=== PATIENT | male | born 1950 | race Caucasian/White ===

== ENCOUNTER 2016-10-22 08:33 | Inpatient (IN) | payer BC, OTHER ==
[2016-10-04 11:46] VITALS: BMI 31.0
--- NOTE | 2016-10-04 12:26 | PAT Medication Instructions ---
Service Date October 04, 2016. Current Home Medication List Amlodipine (Norvasc), 5 MG PO QPM Aspirin (Aspirin Ec), 81 MG PO QAM Atenolol (Tenormin), 25 MG PO QAM Citalopram (Celexa *), 20 MG PO QAM Clopidogrel (Plavix), 75 MG PO QAM Coenzyme Q10 (Ubidecarenone) (Coq10), 100 MG PO QAM Hydrocodone/Acetaminophen 5MG/325MG ([place] 5MG/325MG), 1 TABLET PO BID PRN for Pain Isosorbide Mononitrate (Isosorbide Mononitrate ER), 30 MG PO QAM Multivitamins/Minerals (Mvi With Minerals), 1 TAB PO QAM Nitroglycerin (Nitrostat), 0.4 MG UT PRN Pantoprazole (Protonix), 40 MG PO QAM Rosuvastatin Calcium (Crestor), 20 MG PO QPM Triamterene & Hydrochlorothiaz (Hctz/Triamterene), 0.5 TAB PO Q2D Zolpidem Tartrate (Zolpidem Tartrate), 1 TAB PO HS [Potassium], 99 MG PO QAM Medication Instructions For Your Scheduled Surgery - Check with surgeon/truer pinion and wheel for instructions: Aspirin (Aspirin Ec), 81 MG PO QAM Clopidogrel (Plavix), 75 MG PO QAM - Hold the following medications 2 weeks prior to surgery: Coenzyme Q10 (Ubidecarenone) (Coq10), 100 MG PO QAM - Hold the following medications the morning of surgery: [Potassium], 99 MG PO QAM Triamterene & Hydrochlorothiaz (Hctz/Triamterene), 0.5 TAB PO Q2D Multivitamins/Minerals (Mvi With Minerals), 1 TAB PO QAM - Take the following medications the morning of surgery with a sip of water: Nitroglycerin (Nitrostat), 0.4 MG UT PRN (if needed) Pantoprazole (Protonix), 40 MG PO QAM Isosorbide Mononitrate (Isosorbide Mononitrate ER), 30 MG PO QAM Citalopram (Celexa *), 20 MG PO QAM Atenolol (Tenormin), 25 MG PO QAM Hydrocodone/Acetaminophen 5MG/325MG ([place] 5MG/325MG), 1 TABLET PO BID PRN for Pain (okay to take up to 4 hours prior to surgery if needed) - Take the following medications as scheduled the night before surgery: Zolpidem Tartrate (Zolpidem Tartrate), 1 TAB PO HS Rosuvastatin Calcium (Crestor), 20 MG PO QPM Nitroglycerin (Nitrostat), 0.4 MG UT PRN (if needed) Amlodipine (Norvasc), 5 MG PO QPM Hydrocodone/Acetaminophen 5MG/325MG ([place] 5MG/325MG), 1 TABLET PO BID PRN for Pain (if needed) If you have any questions please call us at [phone] (Kylah Garcia PA-C) or [phone] or [phone]
[2016-10-04 12:49] LABS: BASO % 0.3 %; BASO ABS # 0.03 K/uL (0-0.2); COMPLETE YES; EOS % 1.5 %; HEMATOCRIT 41.3 % (42-52); IG% 0.5 %; LYMPH % 13.1 %; LYMPH ABS # 1.16 K/uL (1.2-3.4); MEAN CELL VOLUME 91.2 fL (80-100); MEAN CORPUSCULAR HEMOGLOBIN 31.1 pg (25-34); MEAN CORPUSCULAR HGB CONC 34.1 g/dl (32-36); MEAN PLATELET VOLUME 9.1 fL (7.4-10.4); MONO % 13.1 %; NEUT % 71.5 %; PLATELET COUNT 261 K/uL (130-400); RED BLOOD COUNT 4.53 M/uL (4.7-6.1); WHITE BLOOD COUNT 8.88 K/uL (4.8-10.8)
--- NOTE | 2016-10-04 12:55 | DIAGNOSTIC IMAGING REPORT ---
TWO VIEW CHEST CLINICAL HISTORY: Preoperative examination. FINDINGS: PA and lateral chest radiographs are compared to study dated 10/28/2008. The heart is enlarged and there is atherosclerotic calcification of the thoracic aorta. The pulmonary vasculature is noncongested. Chronic interstitial thickening is again noted. Minimal atelectasis is identified at the left lung base. No airspace consolidation or pleural effusion is seen. There is no pneumothorax. The skeletal structures appear osteopenic. The bony thorax appears intact. IMPRESSION: Mild cardiac enlargement with no active disease in the chest. Electronically signed by: Meet Mishra M.D. 10/04/2016 12:54 PM Dictated Date/Time: 10/04/2016 12:53 PM
[2016-10-04 13:03] LABS: URINE APPEARANCE CLEAR (CLEAR); URINE BILIRUBIN NEG (NEG); URINE COLOR DK YELLOW; URINE NITRITE NEG (NEG); URINE PH 7.5 (4.5-7.5); URINE SPECIFIC GRAVITY 1.019 (1.000-1.030); UROBILINOGEN NEG (NEG)
[2016-10-04 13:12] LABS: MANUAL MICROSCOPIC REQUIRED? NO; REVIEW REQ? NO
[2016-10-04 14:42] LABS: CALCIUM 9.1 mg/dl (8.5-10.1); CREATININE 0.9 mg/dl (0.60-1.40)
[~2016-10-22] VITALS: Ht 177.8 cm; Wt 97.7 kg
[2016-10-22] VITALS (9 sets, daily range): BP systolic 118–151; BP diastolic 73–105; PULSE 85–109; TEMP 36.5–37.2; O2SAT 90–97; Ht 177.8 cm; Wt 97.7 kg
--- NOTE | 2016-10-22 07:25 | History & Physical Bridge Note ---
H&P Re-Evaluation Bridge Note: I have examined the patient, reviewed the History & Physical and in the interval since the performance of the History & Physical I have noted the following changes of clinical significance: No changes noted
[~2016-10-22 08:33] MED LIST: AMLO-110 PO; ASPI81TA28 PO; ATEN-173 PO; CEFAZOLIN 2000 MG/60 ML D5W IV SCH; CLOP1TAB15 PO; CLX20 PO; COEN100C7 PO; HYDR-5688 PO; ISOS-11 PO; LACTATED RINGER'S 1000ML 1,000 ML IV SCH; MULT-513 PO; NTRGSL/4 UT; PANT40TA PO; POTASSIUM PO; ROSU20TA PO; TRIA75TA PO; ZOLP10TA6 PO
--- NOTE | 2016-10-22 10:00 | History and Physical ---
History & Physical Date October 22, 2016. Chief Complaint back and leg pain History of Present Illness The patient is a 66 year old male with complaints of Additional History Hepatic Disease: No Endocrine Disorder: No Kidney Disease: No Hypertension: No Heart Disease: No Bleeding Tendencies: No Infectious Diseases: No Allergies Coded Allergies: No Known Allergies (Verified , 10/22/16) Home Medications Scheduled Amlodipine (Norvasc), 5 MG PO QPM Aspirin (Aspirin Ec), 81 MG PO QAM Atenolol (Tenormin), 25 MG PO QAM Citalopram (Celexa *), 20 MG PO QAM Clopidogrel (Plavix), 75 MG PO QAM Coenzyme Q10 (Ubidecarenone) (Coq10), 100 MG PO QAM Isosorbide Mononitrate (Isosorbide Mononitrate ER), 30 MG PO QAM Multivitamins/Minerals (Mvi With Minerals), 1 TAB PO QAM Nitroglycerin (Nitrostat), 0.4 MG UT PRN Pantoprazole (Protonix), 40 MG PO QAM Rosuvastatin Calcium (Crestor), 20 MG PO QPM Triamterene & Hydrochlorothiaz (Hctz/Triamterene), 0.5 TAB PO Q2D Zolpidem Tartrate (Zolpidem Tartrate), 1 TAB PO HS [Potassium], 99 MG PO QAM Scheduled PRN Hydrocodone/Acetaminophen 5MG/325MG ([place] 5MG/325MG), 1 TABLET PO BID PRN for Pain Physical Examination Skin: warm/dry, no rash Eyes: normal inspection, EOMI, sclerae normal ENT: normal ENT inspection, pharynx normal Head: normocephalic, atraumatic Neck: supple, no adenopathy, trachea midline Respiratory/Chest: lungs clear, normal breath sounds, no respiratory distress Cardiovascular: regular rate, rhythm, no edema, no murmur Abdomen / GI: normal bowel sounds, non tender Back: normal inspection Extremities: normal inspection, normal range of motion Neurologic/Psych: no motor/sensory deficits, alert, normal reflexes, oriented x 3 Diagnosis lumbar stenosis Plan of Treatment removal inst L3-S1 decompression fusion L2-3 with iliac bolts
[2016-10-22] MEDS ORDERED: MIDAZOLAM HCL 1 MG/ML 2ML VIAL ONE (10:07)
[2016-10-22] MEDS ORDERED: FENTANYL CITRATE INJ 50 MCG/1 ML 2 ML VIAL ONE ×6 (10:08→13:56)
[2016-10-22] MEDS ORDERED: BUPIVACAINE/EPINEPHRINE 0.5% MPF 1:200,000 30 ML VIAL ONE (10:41)
[2016-10-22] MEDS ORDERED: SODIUM CHLORIDE 0.9% PF 50 ML VIAL ONE (10:42)
[2016-10-22] MEDS ORDERED: BACITRACIN 50000 UNIT VIAL ONE (10:42)
[2016-10-22] MEDS ORDERED: HYDROmorphone INJ 2 MG/ML SYR/VIAL IV PRN (10:45)
[2016-10-22] MEDS ORDERED: EpHEDrine SULFATE INJ 50 MG/ML AMP IV PRN ×2 (10:45→15:45)
[2016-10-22] MEDS ORDERED: ONDANSETRON INJ 2 MG/ML 2 ML VIAL IV PRN ×2 (10:45→15:45)
[2016-10-22] MEDS ORDERED: ATROPINE SULFATE 0.1 MG/ML 5ML SYR IV PRN ×2 (10:45→15:45)
[2016-10-22] MEDS ORDERED: PHENYLEPHRINE 100MCG/ML 5ML SYR IV PRN ×2 (10:45→15:45)
[2016-10-22] MEDS ORDERED: HYDROmorphone INJ 2 MG/ML SYR/VIAL ONE ×3 (11:11→13:59)
[2016-10-22] MEDS ORDERED: ALBUMIN HUMAN 5% 12.5 GM/250 ML VIAL IV ONE (12:24)
[2016-10-22 13:23] LABS: HEMATOCRIT 32.1 % (42-52)
[2016-10-22] MEDS ORDERED: LABETALOL HCL IV 5 MG/ML 20ML IV ONE (13:28)
[2016-10-22] MEDS ORDERED: DEXAMETHASONE SOD INJ 4 MG/ML VIAL ONE (13:28)
[2016-10-22] MEDS ORDERED: ROCURONIUM BROMIDE 10 MG/ML 5 ML VIAL ONE ×2 (13:28→13:29)
[2016-10-22] MEDS ORDERED: PROPOFOL IV EMULSION 10 MG/ML 20 ML VIAL IV ONE (13:28)
[2016-10-22] MEDS ORDERED: PHENYLEPHRINE 100MCG/ML 5ML SYR ONE (13:28)
[2016-10-22] MEDS ORDERED: EpHEDrine SULFATE 50MG/5ML SYR ONE (13:28)
[2016-10-22] MEDS ORDERED: LIDOCAINE HCL 2% 2 ML VIAL (20MG/ML) ONE (13:28)
[2016-10-22] MEDS ORDERED: METOPROLOL TARTRATE 1 MG/ML VIAL ONE (13:28)
[2016-10-22] MEDS ORDERED: SODIUM CHLORIDE 0.9% 1000ML 1,000 ML IV SCH (13:55)
--- NOTE | 2016-10-22 13:55 | [facility] Post Operative Brief Note ---
Immediate Operative Summary Operative Date October 22, 2016. Pre-Operative Diagnosis Lumbar stenosis Post-Operative Diagnosis Lumbar stenosis Procedure(s) Performed L2-L4 Lumbar Laminectomy, Decompression; Pedicle Screw Fixation; Placement of Interbody Device; L2-L4 Posterolateral Fusion; Application of Inna Allograft ; Bone Morphogenetic Protein; Bilateral Iliac [place] Fixation; Bilateral Sacroiliac Joint Fusion; L3-L5 Hardware Removal Surgeon Dr. Huang Tube Building Machine Operator Surgeon(s) Giulia Barnett PA-C Estimated Blood Loss 1100 Findings stenosis Specimens A. Explanted hardware
[2016-10-22] MEDS ORDERED: FLOSEAL HEMOSTATIC MATRIX 10ML TOP ONE (13:56)
[2016-10-22] MEDS ORDERED: NALOXONE HCL 0.4 MG/1 ML VIAL/CARP IV PRN ×2 (14:00)
[2016-10-22] MEDS ORDERED: GLYCOPYRROLATE INJ 0.2 MG/ML VIAL ONE (14:00)
[2016-10-22] MEDS ORDERED: LORAZEPAM 0.5 MG TAB PO PRN (14:00)
[2016-10-22] MEDS ORDERED: DO NOT ADMINISTER FLU VACCINE PRN ×3 (14:00)
[2016-10-22] MEDS ORDERED: FAMOTIDINE 20 MG TAB PO PRN (14:00)
[2016-10-22] MEDS ORDERED: BISACODYL 10 MG SUPP PR PRN (14:00)
[2016-10-22] MEDS ORDERED: PROMETHAZINE HCL INJ 12.5 MG in SODIUM CHLORIDE 0.9% 50ML 50 ML IV PRN (14:00)
[2016-10-22] MEDS ORDERED: hydrOXYzine HCL 25 MG TAB PO PRN (14:00)
[2016-10-22] MEDS ORDERED: SOD PHOSPHATE/SOD BIPHOSPHATE ENEMA 132 ML BTL PR PRN (14:00)
[2016-10-22] MEDS ORDERED: LORAZEPAM INJ 0.5 MG in SYRINGE 0.75 ML IV PRN (14:00)
[2016-10-22] MEDS ORDERED: DO NOT ADMINISTER PNEUMOCOCCAL VACCINE PRN ×2 (14:00)
[2016-10-22] MEDS ORDERED: METOCLOPRAMIDE HCL INJ 5 MG/ML 2 ML VIAL IV PRN (14:00)
[2016-10-22] MEDS ORDERED: NITROGLYCERIN 0.4 MG SL PER TAB CHARGE UT PRN (14:00)
[2016-10-22] MEDS ORDERED: ALUMINUM/MAGNESIUM SUSP 30 ML UDC PO PRN (14:00)
[2016-10-22] MEDS ORDERED: ACETAMINOPHEN 500 MG TAB PO PRN (14:00)
[2016-10-22] MEDS ORDERED: ACETAMINOPHEN IV 100 ML IV PRN (14:00)
[2016-10-22] MEDS ORDERED: ONDANSETRON INJ 2 MG/ML 2 ML VIAL ONE (14:00)
[2016-10-22] MEDS ORDERED: MAGNESIUM HYDROXIDE SUSP 30 ML UDC PO PRN (14:00)
[2016-10-22] MEDS ORDERED: NEOSTIGMINE METHYLSULFATE 1 MG/ML 10ML VIAL ONE (14:00)
--- NOTE | 2016-10-22 14:08 | DIAGNOSTIC IMAGING REPORT ---
LUMBAR SPINE 2 OR 3 VIEW CLINICAL HISTORY: Postoperative evaluation. COMPARISON STUDY: Intraoperative lumbar spine fluoroscopic images November 08, 2008. Fluoroscopy time: 20 seconds. FINDINGS: Exact localization is difficult on this exam. These images demonstrate multilevel discectomy with interbody spacer placement. There are multilevel bilateral pedicle screws as well as iliac bolts. 5 fluoroscopic images were obtained. IMPRESSION: Postoperative findings, as described above. Electronically signed by: Bentley Stover M.D. 10/22/2016 2:06 PM Dictated Date/Time: 10/22/2016 2:04 PM
[2016-10-22] MEDS: HYDROmorphone HCL 0.5MG/ML 50 ML CASSETTE IV PRN ×3 (14:25→23:09)
--- NOTE | 2016-10-22 15:43 | Anesthesiology Progress Note ---
Anesthesia Post Op Note Date & Time October 22, 2016 at 15:43 Vital Signs Pain Intensity: 4 Vital Signs Past 12 Hours Date Time Temp Pulse Resp B/P Pulse Ox O2 Delivery O2 Flow Rate FiO2 10/22/16 15:15 36.1 17 134/86 96 Nasal Cannula 2 10/22/16 15:05 36.1 87 17 134/85 96 Nasal Cannula 2 10/22/16 14:55 80 12 133/83 96 Nasal Cannula 2 10/22/16 14:45 78 14 132/80 96 Nasal Cannula 2 10/22/16 14:35 76 14 135/85 99 Mask 10 10/22/16 14:25 85 13 147/89 99 Mask 10 10/22/16 14:19 36.6 93 14 147/97 96 Mask 10 10/22/16 09:20 36.6 88 20 151/105 96 Room Air Notes Mental Status: alert / awake / arousable, participated in evaluation Pt Amnestic to Procedure: Yes Nausea / Vomiting: adequately controlled Pain: adequately controlled Airway Patency, RR, SpO2: stable & adequate BP & HR: stable & adequate Hydration State: stable & adequate Anesthetic Complications: no major complications apparent
[2016-10-22] MEDS ORDERED: HYDROmorphone INJ 1 MG/ML SYR IV PRN (15:45)
[2016-10-22] MEDS: LACTATED RINGER'S 1000ML 1,000 ML IV SCH ×2 (16:18→21:39)
[2016-10-22] MEDS ORDERED: NURSING DECISION MEDICATION ORDER SCH (16:45)
[2016-10-22] MEDS ORDERED: COUGH DROP (SUGAR FREE) LOZ 24 LOZ/1 BOX PO PRN (17:00)
[2016-10-22] MEDS: CEFAZOLIN IV 2,000 MG in DEXTROSE 5% 50ML 50 ML IV SCH (17:42)
[2016-10-22] MEDS: DEXAMETHASONE INJ 6 MG in SYRINGE 0 ML IV SCH (21:30)
[2016-10-22] MEDS: ZOLPIDEM TARTRATE 10 MG TAB PO SCH (21:30)
[2016-10-22] MEDS: AMLODIPINE BESYLATE 5 MG TAB PO SCH (21:31)
[2016-10-22] MEDS: DOCUSATE SODIUM/SENNA 50/8.6MG TAB PO SCH (21:31)
[2016-10-22] MEDS: ROSUVASTATIN CALCIUM 20 MG TAB PO SCH (21:31)
--- NOTE | 2016-10-23 00:35 | OPERATIVE REPORT ---
DATE OF OPERATION: 10/22/2016 PREOPERATIVE DIAGNOSES: Spinal stenosis, bilateral sacroiliitis. POSTOPERATIVE DIAGNOSES: Same. PROCEDURES PERFORMED: 1. Removal of posterior segmental instrumentation, L3-S1. 2. Exploration of fusion of L3-S1. 3. Lumbar decompression, medial facetectomies, foraminotomies L2-L3, L3-L4. 4. Posterior spinal fusion L2-S1. 5. Bilateral SI joint fusion. 6. Placement of posterior segmental instrumentation using Medicrea rods and screws as well as bilateral iliac bolts. 7. Interbody fusion L3-L4. 8. Placement of PEEK cage 15 x 26 mm at L3-L4. 9. Placement of locally harvested morcellized autograft in posterior gutters. 10. Placement of Infuse collagen sponge combined with Mastergraft in the posterior gutters and Inna bone graft in the interbody space. SURGEON: Dr. Richard Huang. KISS MIXER: Giulia Barnett PA-C. Due to the complex nature of the procedure, the entire surgery was performed with the portfolio assistant of NAVIN Norwood. The certified nursing assistant, under direct supervision, was involved in the actual performance of all aspects of the surgical procedure including hemostasis, tissue retraction and incision, instrument management, patient positioning, and wound closure. ANESTHESIA: General. DISPOSITION: The patient awakened and taken to PACU in stable condition. HISTORY OF PATIENT'S PROBLEMS: This is a 66-year-old male well known to me that presents with above-mentioned diagnosis, and after failing extensive course of nonoperative care, elected to undergo the above-mentioned procedure. Risks, benefits, pros, cons, and alternatives were outlined in detail preoperatively. DESCRIPTION OF PROCEDURE: The patient was met with preoperatively, the case discussed and all questions were addressed. At that point the patient was taken back to operative suite and after undergoing successful general intubation by the department of anesthesia was placed in prone position on Ramy table atop Denis frame. All bony prominences were well padded and the eyes were inspected to ensure there was no external pressure placed upon them. At this point, lumbar spine was prepped and draped in normal sterile fashion. Sharp dissection with the assistance of Bovie cautery performed down to and exposing the lamina and transverse processes of L2 and instrumentation at L3, L4, L5 and S1 levels bilaterally. I then proceeded to the hardware bilaterally, noting instability at the L3-L4 level, marked bony overgrowth, definite nonunion. Then we performed a complete revision decompression of L3, partial laminectomy of L2 and instrumentation then placed in L2, L4, L5 and S1 levels bilaterally. We did omit the L3 screws as they were markedly loose secondary to the motion at this level. Bilateral iliac bolts also placed. Through a transforaminal approach on the right, a complete discectomy of L3-L4 was performed, endplates curetted to subcortical bleeding bone and a 15 x 26 mm PEEK cage filled with Inna bone grafting tapped into position. Appropriate size rods were then placed, locked into position. The transverse processes of L2, L3, L4, L5 and sacral ala burred to subcortical bleeding bone as well as burring out the bilateral SI joints. Infuse collagen sponge combined with Mastergraft and locally harvested morselized autograft was placed in the bilateral SI joints posterior gutters bilaterally. A crosslink locked into position, 7 flat GENEVA drain inserted. Incision was closed with 1-0 Vicryl in the fascia, 2-0 Vicryl subcutaneously, 4-0 Monocryl for final skin closure. Steri-Strips and sterile dressing placed. The patient was awakened and taken to PACU in stable condition. I attest to the content of the Intraoperative Record and any orders documented therein. Any exceptio ns are noted below.
[2016-10-23] MEDS: CEFAZOLIN IV 2,000 MG in DEXTROSE 5% 50ML 50 ML IV SCH (02:12)
[2016-10-23 03:05] VITALS: BP 127/82; PULSE 106; TEMP 37.1; O2SAT 94
[2016-10-23] MEDS: LACTATED RINGER'S 1000ML 1,000 ML IV SCH (04:42)
[2016-10-23] MEDS: DEXAMETHASONE INJ 6 MG in SYRINGE 0 ML IV SCH ×2 (05:42→13:19)
[2016-10-23] MEDS ORDERED: DC PCA ONE (06:00)
[2016-10-23] MEDS ORDERED: HYDROmorphone INJ 1 MG/ML SYR IV PRN (06:00)
[2016-10-23 06:16] LABS: COMPLETE YES; HEMATOCRIT 29.7 % (42-52); IG% 0.3 %; LYMPH % 4.7 %; MEAN CELL VOLUME 91.1 fL (80-100); MEAN CORPUSCULAR HEMOGLOBIN 30.7 pg (25-34); MEAN CORPUSCULAR HGB CONC 33.7 g/dl (32-36); MEAN PLATELET VOLUME 9.1 fL (7.4-10.4); MONO % 9.3 %; NEUT % 85.7 %; PLATELET COUNT 207 K/uL (130-400); RED BLOOD COUNT 3.26 M/uL (4.7-6.1); WHITE BLOOD COUNT 10.72 K/uL (4.8-10.8)
[2016-10-23] MEDS ORDERED: NURSING VERBAL MED ORDER ONE (06:30)
[2016-10-23 06:53] LABS: BUN/CREATININE RATIO 10.5 (10-20); CALCIUM 8.1 mg/dl (8.5-10.1); CREATININE 0.89 mg/dl (0.60-1.40); POTASSIUM 4.1 mmol/L (3.5-5.1)
[2016-10-23 07:53] VITALS: BP 120/90; PULSE 82; TEMP 36.2; O2SAT 98
--- NOTE | 2016-10-23 08:04 | PROGRESS NOTE ---
DATE: 10/23/2016 Postop day 1 lumbar decompression and fusion. He has no complaints this morning. He is doing well. Back pain controlled. No radicular leg pain. GENEVA drain output last shift is 170 mL. H\T\H this morning are 10.0 and 29.7 respectively. No other complaints. PHYSICAL EXAMINATION: GENERAL: He is in no obvious distress. Afebrile. VITAL SIGNS: Stable. LOWER EXTREMITIES: Neurovascularly intact. Calves are soft and nontender bilaterally. Lumbar dressing is clean, dry and intact. ASSESSMENT: Postop day 1 lumbar decompression and fusion. PLAN: Will start physical therapy today. Discontinue GEODETIC COMPUTATOR. DVT prophylaxis in the form of TEDs and SCDs. Continue with pain control.
[2016-10-23 08:10] VITALS: O2SAT 98
--- NOTE | 2016-10-23 08:10 | Anesthesiology Progress Note ---
Anesthesia Post Op Note Date & Time October 23, 2016 at 08:10 Vital Signs Vital Signs Past 12 Hours Date Time Temp Pulse Resp B/P Pulse Ox O2 Delivery O2 Flow Rate FiO2 10/23/16 07:59 Room Air 10/23/16 07:53 36.2 82 13 120/90 98 Room Air 10/23/16 03:05 37.1 106 16 127/82 94 Nasal Cannula 2.0 10/22/16 23:45 Nasal Cannula 2.0 10/22/16 23:04 94 Nasal Cannula 2.0 10/22/16 23:00 37.2 109 16 118/74 90 Room Air 10/22/16 21:29 108 131/73 10/22/16 20:25 36.9 107 18 147/90 94 Room Air Notes Mental Status: alert / awake / arousable, participated in evaluation Pt Amnestic to Procedure: Yes Nausea / Vomiting: adequately controlled Pain: adequately controlled Airway Patency, RR, SpO2: stable & adequate BP & HR: stable & adequate Hydration State: stable & adequate Anesthetic Complications: no major complications apparent
[2016-10-23] MEDS: CITALOPRAM 20 MG TAB PO SCH (08:40)
[2016-10-23] MEDS: ASPIRIN 81 MG ECTAB PO SCH (08:40)
[2016-10-23] MEDS: ISOSORBIDE MONONITRATE 30 MG TABCR PO SCH (08:40)
[2016-10-23] MEDS: PANTOprazole SOD 40 MG TAB PO SCH (08:41)
[2016-10-23] MEDS: TRIAMTERENE/HCTZ 37.5/25MG TAB PO SCH (08:41)
[2016-10-23] MEDS: OXYCODONE HCL IR 5 MG TAB (IMMEDIATE RELEASE) PO PRN ×4 (08:42→22:04)
--- NOTE | 2016-10-23 08:54 | Clinical Documentation Query ---
ZE Rubio : CLINICAL DOCUMENTATION QUERIES QUERY 1 OF 2 Patient is a 66 year old male who on 10/22 underwent the following procedures: L2-L4 Lumbar Laminectomy, Decompression; Pedicle Screw Fixation; Placement of Interbody Device; L2-L4 Posterolateral Fusion; Application of Inna Allograft; Bone Morphogenetic Protein; Bilateral Iliac [place] Fixation; Bilateral Sacroiliac Joint Fusion; L3-L5 Hardware Removal. EBL for the procedure was 1,100 ml's with subsequently documented losses to date totaling an additional 470 ml's. Preoperative H&H was 14.1 g/dl adn 41.3%. POD #1, repeat values are 10.0 g/dl and 29.7%. Additionally, net I/O is positive for 1,219 ml's at this time. He is being monitored with serial hematology and I/O including drain outputs. In your clinical opinion is this patient being managed for: ( ) Acute blood loss and hemodilutional anemia ( ) Other explanation of clinical findings (Please Explain) ( ) Unable to determine (Please Define) ( ) Need to Discuss ( ) Not Agree The medical record reflects the following clinical findings, treatment, and risk factors. Clinical Indicators: As above Treatment:He is being monitored with serial hematology and I/O including drain outputs. Risk Factors: Perioperative acute blood losses QUERY 2 OF 2 H&P notes no additional PMH. Medication reconciliation and historical EMR suggest treatment for the following disease processes. As appropriate, consider addition of the following diagnoses to you progress notes and discharge summary. In your clinical opinion is this patient being managed for: ( ) CAD, HTN, depression, hyperlipidemia, GERD ( ) Other explanation of clinical findings (Please Explain) ( ) Unable to determine (Please Define) ( ) Need to Discuss ( ) Not Agree The medical record reflects the following clinical findings, treatment, and risk factors. Clinical Indicators: As above Treatment:Amlodipine (Norvasc), 5 MG PO QPM Aspirin (Aspirin Ec), 81 MG PO QAM Atenolol (Tenormin), 25 MG PO QAM Citalopram (Celexa *), 20 MG PO QAM Clopidogrel (Plavix), 75 MG PO QAM Coenzyme Q10 (Ubidecarenone) (Coq10), 100 MG PO QAM Isosorbide Mononitrate (Isosorbide Mononitrate ER), 30 MG PO QAM Multivitamins/Minerals (Mvi With Minerals), 1 TAB PO QAM Nitroglycerin (Nitrostat), 0.4 MG UT PRN Pantoprazole (Protonix), 40 MG PO QAM Rosuvastatin Calcium (Crestor), 20 MG PO QPM Triamterene & Hydrochlorothiaz (Hctz/Triamterene), 0.5 TAB PO Q2D Zolpidem Tartrate (Zolpidem Tartrate), 1 TAB PO HS [Potassium], 99 MG PO QAM Please clarify and document your clinical opinion in the progress notes and discharge summary. Terms such as "probable", "suspected", "likely", "questionable", "possible", or "still to be ruled out" are acceptable. IF IN AGREEMENT, YOU MUST DOCUMENT ABOVE DIAGNOSTIC STATEMENT IN DAILY PROGRESS NOTES AND DISCHARGE SUMMARY. This document is not part of the patient's record. Thank You, Rocael Stanford, RN [phone]
[2016-10-23] MEDS ORDERED: POTASSIUM 99 MG PO SCH (09:00)
[2016-10-23] MEDS ORDERED: TRIAMTERENE/HCTZ 37.5/25MG CAP PO SCH (09:00)
[2016-10-23 12:22] VITALS: BP 118/76; PULSE 78; TEMP 36.3; O2SAT 98
[2016-10-23 16:24] VITALS: BP 129/78; PULSE 82; TEMP 36.9; O2SAT 97
[2016-10-23] MEDS: ZOLPIDEM TARTRATE 10 MG TAB PO SCH (22:04)
[2016-10-23] MEDS: AMLODIPINE BESYLATE 5 MG TAB PO SCH (22:04)
[2016-10-23] MEDS: ROSUVASTATIN CALCIUM 20 MG TAB PO SCH (22:05)
[2016-10-23] MEDS: DOCUSATE SODIUM/SENNA 50/8.6MG TAB PO SCH (22:05)
[2016-10-23 23:35] VITALS: BP 149/85; PULSE 87; TEMP 36.6; O2SAT 96
[2016-10-24] MEDS: POLYETHYLENE (MIRALAX) 17 GM PACK PO SCH ×4 (05:46→23:45)
[2016-10-24 07:00] VITALS: BP 127/83; PULSE 81; TEMP 36.9; O2SAT 94
[2016-10-24] MEDS: OXYCODONE HCL IR 5 MG TAB (IMMEDIATE RELEASE) PO PRN ×3 (08:14→20:25)
[2016-10-24] MEDS: PANTOprazole SOD 40 MG TAB PO SCH (09:10)
[2016-10-24 09:11] VITALS: BP 145/84; PULSE 69
[2016-10-24] MEDS: CITALOPRAM 20 MG TAB PO SCH (09:11)
[2016-10-24] MEDS: ASPIRIN 81 MG ECTAB PO SCH (09:11)
[2016-10-24] MEDS: ISOSORBIDE MONONITRATE 30 MG TABCR PO SCH (09:12)
[2016-10-24] MEDS ORDERED: RXC5 PO (09:55)
--- NOTE | 2016-10-24 09:55 | Discharge Instructions ---
Discharge Instructions Date of Service October 24, 2016. Admission Reason for Admission: Lumbar Spinal Stenosis Discharge Discharge Diagnosis / Problem: stenosis Discharge Goals Goal(s): Improve function Activity Recommendations Activity Limitations: per Instructions/Follow-up section . Instructions / Follow-Up Instructions / Follow-Up ACTIVITY RECOMMENDATIONS: SELF CARE INSTRUCTIONS AFTER THORACIC/LUMBAR FUSIONS 1. You may walk to your tolerance. It is good exercise for your legs and back. Expect some back and intermittent leg aches and pains. 2. You may perform "counter-top" level activities (make a sandwich, gisela with a project, etc.). 3. No bending or lifting of more than 10 pounds or back twisting of any nature (roll like a log when turning in bed). 4. You may ride in a car for 20-30 minutes at a time. No driving until after your first visit with your doctor. 5. Frequent changes of position and restricting sitting to 30 minutes at a time will help limit the amount of back spasms and stiffness you may experience. 6. You may discontinue the use of ambulatory aids (cane, crutches, etc.) once your strength and confidence allow. 7. You may body component engineer the shower and let water strike your incision when you arrive home at least once daily. Do not take a tub bath, sit in a hot tub or go into a swimming pool until after your first recheck in the office. SPECIAL CARE INSTRUCTIONS: VERY IMPORTANT TO READ AND REVIEW A. Your surgical incision has been closed with a cosmetic suture under the skin that will dissolve in about 6 weeks. In 14 days, you can use a pair of clean scissors and cut the suture that is left outside of the skin at the ends of your incision. 1. The small skin tapes can be removed 7 days after surgery if they have not fallen off by that point. 2. You may keep the wound open to air as much as possible to promote healing after post-op day number 5 unless told otherwise by your doctor. 3. If you think the wound looks like it is becoming infected (redness or worsening drainage) and/or you are experiencing fever, chill or worsening back pain and muscle spasms, contact the office so that we may evaluate you as soon as possible. B. Complications are uncommon, but please contact us if you have any signs or symptoms of: 1. wound infection (fever higher than 102.5 degrees F, redness, separation of wound, drainage, or increasing pain from the incision) 2. blood clots in legs (pain, swelling, redness and warmth in legs) 3. urinary tract infection (fever higher than 102.5 degrees F, burning upon urination or increased frequency of urination) 4. nerve problems (inability to walk on your toes or heels, numbness, loss of bowel or bladder control) 5. any other symptoms that concern you C. Please call the office at if you have any concerns or questions about your operation or recovery. D. No smoking! Smoking drastically decreases the chance of a solid fusion. E. Do not take any anti-inflammatory medications (Indocin, Advil, Motrin, Aspirin, Naprosyn, etc.) as these may inhibit the chance of a solid fusion. Tylenol is okay to take for pain. MANAGING PAIN AFTER SPINAL SURGERY 1. Narcotic medication is intended for short-term use and will be provided for surgical pain. Surgical pain usually lasts for a period of 4-6 weeks. Narcotic medication includes Percocet, Vicodin, Darvocet, Tylenol #3 or Lortab. 2. Longer-term pain is more appropriately treated with non-narcotic medication such as Tylenol ES. 3. Muscle spasm is not appropriately treated with narcotics. Muscle relaxers such as Soma, Flexeril or Skelaxin can be used along with Tylenol ES. 4. Remember that we all live with some "aches and pains". This is not unusual or uncommon after an injury or as we get older. a. Back pain is expected and may include muscle spasms for 4 to 6 weeks after surgery. The pain should gradually improve. If the pain worsens for no apparent reason, please contact the office. b. Intermittent leg pain may also be experienced and should not be concerned about unless it worsens for no apparent reason. If so, please contact the office. 5. We will provide appropriate medication within the normal guidelines of their prescribed use. We will also be very cautious and aware of potential abuse and extended duration of patients' medication needs. a. Pain medications are for your comfort and to assist with sleep and rest so that the tissue can heal. They are not provided in order to return to normal activity and should not be used through the day. To do so or worsening pain at night can result from ongoing tissue damage and development of tolerance to the prescribed medicine. 6. Please allow 2-3 days to process refills. Prescriptions will not be mailed but must be picked up at the office. FOLLOW UP VISIT: Keep your scheduled follow-up appointment. Any questions, please call the office at . Current Hospital Diet Patient's current hospital diet: Regular Diet Discharge Diet Recommended Diet: Regular Diet Procedures Procedures Performed: L2-L4 Lumbar Laminectomy, Decompression; Pedicle Screw Fixation; Placement of Interbody Device L3-L4; L2-S1 Posterolateral Fusion; Application of Inna Allograft; Bone Morphogenetic Protein; Bilateral Iliac [place] Fixation; Bilateral Sacroiliac Joint Fusion; L3-S1 Hardware Removal Pending Studies Studies pending at discharge: no Medical Emergencies . Who to Call and When: Medical Emergencies: If at any time you feel your situation is an emergency, please call 911 immediately. . Non-Emergent Contact Non-Emergency issues call your: Primary Care Provider . "Provider Documentation" section prepared by Richard Huang. . VTE Core Measure Inpt VTE Proph given/why not?: Shereen Meeks, SCD's
[2016-10-24 12:00] VITALS: BP 100/61; PULSE 63; TEMP 37; O2SAT 95
[2016-10-24 12:05] VITALS: BP 152/85; O2SAT 98
[2016-10-24] MEDS: ONDANSETRON INJ 2 MG/ML 2 ML VIAL IV PRN ×2 (12:39→20:25)
[2016-10-24 15:42] VITALS: BP 146/86; PULSE 70; TEMP 36.6; O2SAT 90
--- NOTE | 2016-10-24 16:34 | PROGRESS NOTE ---
DATE: 10/24/2016 DATE: 10/24/2016. SUBJECTIVE: Postop day #2. Back pain controlled. Leg pain improved. Vital signs stable. T-max 37.0. GENEVA drained 155 mL. Bowel movement x2. Hematocrit stable at 29.7. OBJECTIVE: On exam the patient has good strength to testing, appears comfortable. ASSESSMENT: Status post lumbar decompression and fusion. PLAN: At this time, will continue physical therapy, advance his bowel regimen and anticipate home tomorrow.
[2016-10-24] MEDS: ROSUVASTATIN CALCIUM 20 MG TAB PO SCH (21:10)
[2016-10-24] MEDS: AMLODIPINE BESYLATE 5 MG TAB PO SCH (21:10)
[2016-10-24] MEDS: DOCUSATE SODIUM/SENNA 50/8.6MG TAB PO SCH (21:10)
[2016-10-24] MEDS: ZOLPIDEM TARTRATE 10 MG TAB PO SCH (21:10)
[2016-10-24 23:05] VITALS: BP 132/74; PULSE 79; TEMP 37.3; O2SAT 92
[2016-10-25] MEDS: ONDANSETRON INJ 2 MG/ML 2 ML VIAL IV PRN (02:43)
[2016-10-25] MEDS: OXYCODONE HCL IR 5 MG TAB (IMMEDIATE RELEASE) PO PRN ×3 (02:44→12:52)
[2016-10-25] MEDS ORDERED: NURSING VERBAL MED ORDER ONE (03:00)
[2016-10-25 07:05] VITALS: BP 130/78; PULSE 74; TEMP 36.5; O2SAT 97
[2016-10-25] MEDS: PANTOprazole SOD 40 MG TAB PO SCH (08:45)
[2016-10-25] MEDS: ASPIRIN 81 MG ECTAB PO SCH (08:51)
[2016-10-25] MEDS: TRIAMTERENE/HCTZ 37.5/25MG TAB PO SCH (08:52)
[2016-10-25] MEDS: CITALOPRAM 20 MG TAB PO SCH (08:52)
[2016-10-25] MEDS: ISOSORBIDE MONONITRATE 30 MG TABCR PO SCH (08:52)
[2016-10-25 12:55] VITALS: BP 130/78; PULSE 74; TEMP 36.5; O2SAT 97
--- NOTE | 2016-10-25 17:36 | DISCHARGE SUMMARY ---
PRINCIPAL DIAGNOSIS: Spinal stenosis. HOSPITAL COURSE FOLLOWS: On 10/22/2016 patient underwent lumbar decompression and fusion, tolerated this well and taken to the orthopedic floor postoperatively. Postop day #1 he was up and ambulatory, progressed to postop day #2. On postop day #3 doing well. Subsequently discharged home. Discharge orders and instructions found on the chart for further review.
== END 2016-10-25 13:19 | disposition home or self-care (01) | DRG 460 ==
LOC: ENRESERVTM → ENRESERVDT → C.ACU 08:33 → C.3E 09:00
PROVIDERS: ADMIT Orthopaedic Surgery Orthopaedic Surgery of the Spine; ATTEND Orthopaedic Surgery Orthopaedic Surgery of the Spine
PROC: 0SP004Z Removal of Internal Fixation Device from Lumbar Vertebral Joint, Open Approach (ICD-10-PCS; principal; 2016-10-22 10:45)
PROC: 0ST20ZZ Resection of Lumbar Vertebral Disc, Open Approach (ICD-10-PCS; principal; 2016-10-22 10:45)
PROC: 0SG804Z Fusion of Left Sacroiliac Joint with Internal Fixation Device, Open Approach (ICD-10-PCS; principal; 2016-10-22 10:45)
PROC: 0SG704Z Fusion of Right Sacroiliac Joint with Internal Fixation Device, Open Approach (ICD-10-PCS; principal; 2016-10-22 10:45)
PROC: 0SG00A1 (ICD-10-PCS; principal; 2016-10-22 10:45)
PROC: 0SG30Z1 (ICD-10-PCS; principal; 2016-10-22 10:45)
DX: M48.06 Spinal stenosis, lumbar region (principal); M46.1 Sacroiliitis, not elsewhere classified; Z79.82 Long term (current) use of aspirin; Z79.899 Other long term (current) drug therapy